=== PATIENT | male | born 1980 | race Caucasian/White ===

== ENCOUNTER 2016-09-05 16:21 | Emergency (ER) | payer SELFPAY ==
[2016-09-05 16:42] VITALS: BP 167/94; PULSE 94; TEMP 98.6
[2016-09-05 16:43] VITALS: BMI 26.9
[2016-09-05] MEDS ORDERED: CLINDAMYCIN 150 MG CAP PO ONE (16:53)
[2016-09-05] MEDS ORDERED: OXYCODONE HCL 5 MG TABLET PO ONE (16:53)
--- NOTE | 2016-09-05 17:05 | EDPRACDOC ---
- General Information Chief Complaint: Toothache Stated Complaint: RT LOWER DENTAL ABSCESS Time Seen by Provider: 09/05/16 16:47 Information Source: Patient Mode Of Arrival: Car Home Medications: Home Medications Clindamycin [Cleocin] 150 mg PO Q6 #56 cap 09/05/16 Oxycodone Immediate Release [Oxycodone Immediate Release (OxyIR)] 5 mg PO Q6H PRN #20 tab 09/05/16 Allergies/Adverse Reactions: Allergies Allergy/AdvReac Type Severity Reaction Status Date / Time No Known Allergies Allergy Verified 07/30/16 12:11 - History of Present Illness Onset: SEVERAL DAYS HPI: PT PRESENTS WITH TOOTH PAIN AND FACIAL SWELLING ON THE RIGHT LOWER SIDE THAT BEGAN SEVERAL DAYS AGO. PT HAS A BROKEN 1ST MOLAR ON THE RIGHT LOWER SIDE. Reported Tooth Problem: 1ST RIGHT LOWER MOLAR Pain Severity: Reports: Moderate Relevant History of: Reports: None Modifying Factors: improves with: Heat, Cold, Chewing Associated Signs and Symptoms: Reports: None ED Past Medical History - History Reviewed Yes Nurses notes reviewed and agree except as marked - Patient Medical History Psychological History: Denies: Depression - Social Medical History Smoking Status: Heavy tobacco smoker (5 or more cigarettes/day or daily pipe/ cigar) EDM Review of Systems - Review of Systems ROS Negative Except as Marked: Yes All systems reviewed and were negative except as marked - Physical Exam Constitutional: Alert Oriented to: Time, Person, Place Last recorded Vital Signs: Last Vital Signs Temp 98.6 F 09/05/16 16:42 Pulse 94 09/05/16 16:42 Resp 18 09/05/16 16:42 BP 167/94 09/05/16 16:42 Pulse Ox 97 09/05/16 16:42 Oxygen Pulse Oxygen Saturation 97 O2 Device Oxygen Flow Rate Fraction of Inspired Oxygen ( FIO2) - HEENT Head: Normal ( normocephalic) Eye Exam: Normal (PERRL, EOMI, Sclera white) Oropharynx: Normal (Pharynx:Moist without exudate,Gums-no swelling) Nose: No Symptoms Reported (septum midline) Neck: Normal (FROM, trachea at midline) - Respiratory/Cardiovascular Respiratory: Normal - CTA (BBS clear to auscultation without adventitious sounds ) Cardiovascular: Normal (RRR without murmur, gallop or rub) - GI Auscultation: Normal (NABS) Palpation: Normal (Soft,No rebound or guarding, non distended) Tenderness: Non tender Crain's Sign: Negative Rectal Exam: Deferred - Musculoskeletal Back: Normal (Non-Tender) Extremities: Normal (Normal tone, Pulses 2+ No cyanosis or edema, FROM) - Integumentary Skin: Normal, Warm, Dry Lymphatics: Normal (no adenopathy) - Neurologic Memory Impaired: Normal Motor Function: Normal (Normal tone, Pulses 2+ No cyanosis or edema, FROM) Cranial Nerve: Normal (CN II-X11 intact sensation, strength 5/5) Cerebellar: Normal Mood Description: Normal Perception: Normal ED Tooth Problem Exam - HEENT Face: Swelling, Tender Teeth: Right: Molar-1 Lower (BROKEN) Gingiva: Tender, Swelling Palate: Normal Mouth Range of Motion: Normal Sinuses: Normal Oropharynx: Normal Neck: Normal - Differential Diagnosis Periodontal Abscess Decision Time to Discharge: 17:05 - Departure Disposition: Home Condition: Stable Final Diagnosis: Dental abscess Instructions: Dental Abscess (ED) Education/Counseling Given To: Patient Education/Counseling Given Regarding: Diagnosis, Treatment, Prognosis, Follow Up Referrals: Bayron Zuniga MD [Primary Care Provider] - One Week Prescriptions: New Clindamycin [Cleocin] 150 mg PO Q6 #56 cap Oxycodone Immediate Release [Oxycodone Immediate Release (OxyIR)] 5 mg PO Q6H PRN #20 tab PRN Reason: Pain Discontinued Amoxicillin Trihydrate [Amoxicillin] 500 mg PO TID #30 tab Meloxicam [Mobic] 15 mg PO DAILY #30 tab Additional Instructions: INCREASE FLUID INTAKE. FOLLOW UP WITH PRIMARY CARE PROVIDER NEXT WEEK. TAKE ALL ANTIBIOTICS PRESCRIBED. RETURN TO THE ED FOR WORSENING SYMPTOMS OR CONCERNS.
== END 2016-09-05 17:10 | disposition home or self-care (01) ==
LOC: EDMC 16:21
DX: K04.7 Periapical abscess without sinus (principal)
CPT/HCPCS: 99283; J3490